=== PATIENT | male | born 1975 | race American Indian/Alaskan Native ===

== ENCOUNTER 2019-07-28 17:37 | Emergency (ER) | payer SELFPAY ==
[2019-07-28 18:18] LABS: Basophils # (Auto) 0.1 K/mm3 (0.0-0.1); Basophils % (Auto) 1.4 % (0.0-1.8); Eosinophils % (Auto) 0.2 % (0.0-4.3); Hematocrit 42.9 % (35.5-45.6); Hemoglobin 14.4 gm/dl (11.8-15.2); Lymphocytes # (Auto) 0.6 K/mm3 (1.2-5.4); Lymphocytes % (Auto) 7.2 % (13.4-35.0); Mean Corpuscular HGB Conc 34 % (32-34); Mean Corpuscular Volume 85 fl (84-94); Monocytes # (Auto) 0.6 K/mm3 (0.0-0.8); Monocytes % (Auto) 7.6 % (0.0-7.3); Platelet Count 146 K/mm3 (140-440); Red Blood Count 5.05 M/mm3 (3.65-5.03); Red Cell Distribution Width 14.9 % (13.2-15.2)
[2019-07-28 18:52] LABS: BUN/Creatinine Ratio 11; Blood Urea Nitrogen 12 mg/dL (9-20); Calcium 8.8 mg/dL (8.4-10.2); Hemolysis Index 54
[2019-07-28] MEDS ORDERED: PHENYTOIN 1,000 MG in SODIUM CHLORIDE 0.9% 250ML 250 ML IV ONE (19:30)
[2019-07-28 21:19] VITALS: BP 120/70
--- NOTE | 2019-07-28 21:25 | Emergency Department Report ---
ED Seizure HPI - General Chief Complaint: Seizure Stated Complaint: SEIZURE/UNRESPONSIVE Time Seen by Provider: 07/28/19 18:00 Source: patient, EMS Mode of arrival: Stretcher Limitations: No Limitations - History of Present Illness Initial Comments: Patient is a 43-year-old -[place] male with past medical history of seizure disorder who states he missed his Dilantin dose last night. Patient states is been some time since he had a seizure. Patient states she's been no injury. He still feels somewhat sleepy and tired. Patient lies any drug use fevers chills cough, congestion nausea vomiting. - Related Data Home Medications Medication Instructions Recorded Confirmed Last Taken Phenytoin [Dilantin] 500 mg PO QHS 07/28/19 07/28/19 07/27/19 Allergies Allergy/AdvReac Type Severity Reaction Status Date / Time aspirin Allergy Unknown Verified 07/28/19 19:28 ED Review of Systems ROS: Stated complaint: SEIZURE/UNRESPONSIVE Other details as noted in HPI Comment: All other systems reviewed and negative ED Past Medical Hx - Past Medical History Hx Seizures: Yes - Surgical History Past Surgical History?: No - Social History Smoking Status: Current Every Day Smoker Substance Use Type: None - Medications Home Medications: Home Medications Medication Instructions Recorded Confirmed Last Taken Type Phenytoin [Dilantin] 500 mg PO QHS 07/28/19 07/28/19 07/27/19 History ED Physical Exam - General Limitations: No Limitations General appearance: alert, in no apparent distress - Head Head exam: Present: atraumatic, normocephalic - Eye Eye exam: Present: normal appearance, PERRL, EOMI - ENT ENT exam: Present: mucous membranes moist - Neck Neck exam: Present: normal inspection - Respiratory Respiratory exam: Present: normal lung sounds bilaterally. Absent: respiratory distress, wheezes, rales, rhonchi - Cardiovascular Cardiovascular Exam: Present: regular rate, normal rhythm, normal heart sounds. Absent: systolic murmur, diastolic murmur, rubs, gallop - GI/Abdominal GI/Abdominal exam: Present: soft, normal bowel sounds. Absent: distended, tenderness, guarding, rebound - Rectal Rectal exam: Present: deferred - Extremities Exam Extremities exam: Present: normal inspection - Back Exam Back exam: Present: normal inspection - Neurological Exam Neurological exam: Present: alert, oriented X3 - Psychiatric Psychiatric exam: Present: normal affect, normal mood - Skin Skin exam: Present: warm, dry, intact, normal color. Absent: rash ED Course Vital Signs 07/28/19 07/28/19 07/28/19 17:55 18:43 19:05 Temperature 98.0 F 98.2 F Pulse Rate 83 82 77 Respiratory 21 12 18 Rate Blood Pressure 116/67 Blood Pressure 115/70 113/68 [Left] O2 Sat by Pulse 98 97 100 Oximetry 07/28/19 21:00 Temperature Pulse Rate 82 Respiratory 19 Rate Blood Pressure 120/70 Blood Pressure [Left] O2 Sat by Pulse 100 Oximetry ED Medical Decision Making - Lab Data Result diagrams: 07/28/19 18:09 07/28/19 18:09 Lab Results 07/28/19 07/28/19 07/28/19 Range/Units 18:09 18:09 18:09 WBC 8.0 (4.5-11.0) K/mm3 RBC 5.05 H (3.65-5.03) M/mm3 Hgb 14.4 (11.8-15.2) gm/dl Hct 42.9 (35.5-45.6) % MCV 85 (84-94) fl MCH 29 (28-32) pg MCHC 34 (32-34) % RDW 14.9 (13.2-15.2) % Plt Count 146 (140-440) K/mm3 Lymph % (Auto) 7.2 L (13.4-35.0) % [place] % (Auto) 7.6 H (0.0-7.3) % Eos % (Auto) 0.2 (0.0-4.3) % Baso % (Auto) 1.4 (0.0-1.8) % Lymph # 0.6 L (1.2-5.4) K/mm3 [place] # 0.6 (0.0-0.8) K/mm3 Eos # 0.0 (0.0-0.4) K/mm3 Baso # 0.1 (0.0-0.1) K/mm3 Seg Neutrophils % 83.6 H (40.0-70.0) % Seg Neutrophils # 6.7 (1.8-7.7) K/mm3 Sodium 134 L (137-145) mmol/L Potassium 3.9 (3.6-5.0) mmol/L Chloride 97.3 L (98-107) mmol/L Carbon Dioxide 20 L (22-30) mmol/L Anion Gap 21 mmol/L BUN 12 (9-20) mg/dL Creatinine 1.1 (0.8-1.5) mg/dL Estimated GFR > 60 ml/min BUN/Creatinine Ratio 11 % Glucose 108 H (75-100) mg/dL Calcium 8.8 (8.4-10.2) mg/dL Phenytoin 3.0 L (10.0-20.0) ug/mL - Medical Decision Making Since Dilantin level was 3. We loaded with a gram of Dilantin and will be discharged home. Patient's been seizure-free since he's been in our emergency department. Critical care attestation.: If time is entered above; I have spent that time in minutes in the direct care of this critically ill patient, excluding procedure time. ED Disposition Clinical Impression: Subtherapeutic phenytoin level, Breakthrough seizure Disposition: DC-01 TO HOME OR SELFCARE Is pt being admited?: No Does the pt Need Aspirin: No Condition: Stable Instructions: Recurrent Seizures Adult (ED) Referrals: GALE OCHOA MD [Staff Physician] - as needed Time of Disposition: 21:25
== END 2019-07-28 22:14 | disposition home or self-care (01) ==
LOC: ED 17:37
DX: R56.9 Unspecified convulsions (principal); Z88.6 Allergy status to analgesic agent
CPT/HCPCS: 36415; 80048; 80185; 85025; 96365; 99284; J1165; J7050

== ENCOUNTER 2019-09-16 09:08 | Emergency (ER) | payer OTHER ==
[2019-09-16] MEDS ORDERED: KETOROLAC 30 MG/1 ML INJ IV ONE (09:32)
[2019-09-16] MEDS ORDERED: MORPHINE 4 MG/1 ML INJ IV ONE ×2 (09:32→12:30)
--- NOTE | 2019-09-16 10:12 | XRay Report ---
XR shoulder 2+V RT INDICATION / CLINICAL INFORMATION: right shoulder deformity after SZ. COMPARISON: None available. FINDINGS: BONES/JOINT(S): There is an anterior right shoulder (glenohumeral joint) dislocation. There is no jose reciable fracture radiographically. SOFT TISSUES: No significant abnormality. ADDITIONAL FINDINGS: None. Signer Name: Phu Aldridge MD Signed: 09/16/2019 10:08 AM Workstation Name: [id number]
[2019-09-16] MEDS ORDERED: ETOMIDATE 20 MG/10 ML INJ IV ONE (10:36)
--- NOTE | 2019-09-16 10:47 | Emergency Department Report ---
ED Seizure HPI - General Chief Complaint: Seizure Stated Complaint: SHOULDER PAIN/SEIZURE Time Seen by Provider: 09/16/19 09:28 Source: patient Mode of arrival: Ambulatory Limitations: No Limitations - History of Present Illness Initial Comments: The patient is a 44-year-old male with a past smoker history of seizures who had a seizure last night. Patient takes Dilantin for his seizure medications. Patient states he believes he's been compliant with his medications. Patient states that during the seizure he injured his right shou lder. Patient has a history of shoulder dislocation in the past. Patient states he has 8 out of 10 pain in the right shoulder which is worse with movement better with rest. Patient denies any other injury at this time. She denies any fevers chills nausea vomiting cough cold or congestion. MD Complaint: seizure Witnessed:: Yes Place: home (patient had a seizure in his bed) Associated Symptoms: shoulder dislocation - Related Data Previous Rx's Medication Instructions Recorded Last Taken Type HYDROcodone/APAP 5-325 [Bear 1 each PO Q6HR PRN #14 tablet 09/16/19 Unknown Rx 5/325] Phenytoin [Dilantin] 500 mg PO QHS #30 09/16/19 Unknown Rx Allergies Allergy/AdvReac Type Severity Reaction Status Date / Time aspirin Allergy Unknown Verified 09/16/19 09:23 ED Review of Systems ROS: Stated complaint: SHOULDER PAIN/SEIZURE Other details as noted in HPI Comment: All other systems reviewed and negative ED Past Medical Hx - Past Medical History Previous Medical History?: Yes Hx Seizures: Yes - Surgical History Past Surgical History?: No - Social History Smoking Status: Current Every Day Smoker Substance Use Type: None - Medications Home Medications: Home Medications Medication Instructions Recorded Confirmed Last Taken Type HYDROcodone/APAP 5-325 [Bear 1 each PO Q6HR PRN #14 tablet 09/16/19 Unknown Rx 5/325] Phenytoin [Dilantin] 500 mg PO QHS #30 09/16/19 Unknown Rx ED Physical Exam - General Limitations: No Limitations General appearance: alert, in no apparent distress - Head Head exam: Present: atraumatic, normocephalic - Eye Eye exam: Present: normal appearance, PERRL, EOMI - ENT ENT exam: Present: mucous membranes moist - Neck Neck exam: Present: normal inspection. Absent: tenderness, meningismus - Respiratory Respiratory exam: Present: normal lung sounds bilaterally. Absent: respiratory distress, wheezes, rales, rhonchi - Cardiovascular Cardiovascular Exam: Present: regular rate, normal rhythm, normal heart sounds - GI/Abdominal GI/Abdominal exam: Present: soft, normal bowel sounds. Absent: distended, tenderness, guarding, rebound - Rectal Rectal exam: Present: deferred - Extremities Exam Extremities exam: Present: normal inspection - Expanded Upper Extremity Exam Right Shoulder Exam: Present: tenderness, deformity, dislocation. Absent: full ROM Vascular: Present: normal capillary refill. Absent: vascular compromise - Back Exam Back exam: Present: normal inspection - Neurological Exam Neurological exam: Present: alert, oriented X3 - Psychiatric Psychiatric exam: Present: normal affect, normal mood - Skin Skin exam: Present: warm, dry, intact, normal color. Absent: rash ED Course Vital Signs 09/16/19 09/16/19 09/16/19 09:32 11:17 11:54 Temperature 98.2 F 98 F Temperature [ Post-Procedure] Temperature [ 98 F Pre-Procedure] Pulse Rate 70 64 Pulse Rate [ Post-Procedure] Pulse Rate [Pre 64 -Procedure] Respiratory 18 14 Rate Respiratory Rate [Post- Procedure] Respiratory 16 Rate [Pre- Procedure] Blood Pressure 150/88 131/79 [Left] Blood Pressure [Post-Procedure ] Blood Pressure 126/79 [Pre-Procedure] O2 Sat by Pulse 97 100 Oximetry O2 Sat by Pulse Oximetry [Post -Procedure] O2 Sat by Pulse 100 Oximetry [Pre- Procedure] 09/16/19 09/16/19 09/16/19 11:56 12:11 12:19 Temperature Temperature [ 98 F 98 F Post-Procedure] Temperature [ Pre-Procedure] Pulse Rate Pulse Rate [ 64 60 Post-Procedure] Pulse Rate [Pre -Procedure] Respiratory Rate Respiratory 16 16 Rate [Post- Procedure] Respiratory Rate [Pre- Procedure] Blood Pressure [Left] Blood Pressure 136/78 138/81 [Post-Procedure ] Blood Pressure [Pre-Procedure] O2 Sat by Pulse 100 Oximetry O2 Sat by Pulse 100 100 Oximetry [Post -Procedure] O2 Sat by Pulse Oximetry [Pre- Procedure] - Reevaluation(s) Reevaluation #1: 09/16/19 10:50 Attempted to use the Milch technique for the patient's shoulder dislocation. Was unsuccessful. The plan was to use moderate sedation and reattempt the relocation. - Moderate Sedation Indications: fracture/dislocation redu ASA Class: II Mallampati Airway Score: 2 Time of Last PO Intake: 06:00 Preparation: compliance monitor applied, pulse oximeter, capnometry used, supplemental O2 applied, suction/airway equipment at bedside, IV secured IV Etomidate Dose (mgs): 10 Complications: none Patient Tolerated Procedure: well - Orthopedic Joint Reduction Joint #1 Consent Obtained: verbal consent, written consent Time Out Performed: Yes Side: right Joint Reduction Location: shoulder Analgesia: moderate sedation Shoulder Technique Used (if applicable): Milch Post-Reduction Neuro Exam: intact Post-Reduction Vascular Exam: intact Post Reduction X-Ray Obtained: Yes Splint Applied: Yes Patient Tolerated Procedure: well ED Medical Decision Making - Lab Data Lab Results 09/16/19 Range/Units 09:45 Phenytoin 0.9 L (10.0-20.0) ug/mL - Radiology Data Patient: LULU DOWNS MR#: [id number] : 1975 Acct:[id number] Age/Sex: 44 / M ADM Date: 09/16/19 Loc: ED Attending Dr: Ordering Physician: OK KELLEY MD Date of Service: 09/16/19 Procedure(s): XR shoulder 2+V RT Accession Number(s): [id number] cc: OK KELLEY MD Fluoro Time In Minutes: XR shoulder 2+V RT INDICATION / CLINICAL INFORMATION: right shoulder deformity after SZ. COMPARISON: None available. FINDINGS: BONES/JOINT(S): There is an anterior right shoulder (glenohumeral joint) dislocation. There is no appreciable fracture radiographically. SOFT TISSUES: No significant abnormality. ADDITIONAL FINDINGS: None. Signer Name: Phu Aldridge MD Signed: 09/16/2019 10:08 AM Workstation Name: [id number] - Medical Decision Making Patient is a 44-year-old gentleman who suffered a seizure prior to arrival. Patient states is mostly compliant with his Dilantin however he did miss a few doses a few days ago. Patient Dilantin level was very low and the patient's been loaded at this time. Patient also suffered a right shoulder dislocation. Patient had shoulder reduced. Moderate sedation had to be used. Patient was monitored until he returned back to his baseline patient is doing well. Critical care attestation.: If time is entered above; I have spent that time in minutes in the direct care of this critically ill patient, excluding procedure time. ED Disposition Clinical Impression: Seizure, Subtherapeutic phenytoin level, Shoulder dislocation Disposition: - TO HOME OR SELFCARE Is pt being admited?: No Does the pt Need Aspirin: No Condition: Stable Instructions: Shoulder Dislocation (ED), Epilepsy (ED) Prescriptions: Phenytoin [Dilantin] 500 mg PO QHS #30 HYDROcodone/APAP 5-325 [Bear 5/325] 1 each PO Q6HR PRN #14 tablet PRN Reason: Pain Referrals: PRIMARY CAREMD [Primary Care Provider] - 3-5 Days PANFILO GREENE MD [Staff Physician] - 3-5 Days Time of Disposition: 13:33
[2019-09-16] MEDS ORDERED: PHENYTOIN 1,000 MG in SODIUM CHLORIDE 0.9% 250ML 250 ML IV ONE (12:00)
--- NOTE | 2019-09-16 12:33 | XRay Report ---
Right shoulder-single frontal view INDICATION: post reduction film. COMPARISON: Earlier today IMPRESSION: Interval relocation of the glenohumeral joint with no gross fracture identified. No sig nificant DJD. Signer Name: Austin Magana MD Signed: 09/16/2019 12:28 PM Workstation Name: [id number]
[2019-09-16 14:04] VITALS: BP 137/86
== END 2019-09-16 14:02 | disposition home or self-care (01) ==
LOC: ED 09:08
DX: S43.004A Unspecified dislocation of right shoulder joint, initial encounter (principal); R89.2 Abnormal level of other drugs, medicaments and biological substances in specimens from other organs, systems and tissues; R56.9 Unspecified convulsions; F17.200 Nicotine dependence, unspecified, uncomplicated; Z88.6 Allergy status to analgesic agent; Z79.899 Other long term (current) drug therapy; W01.198A Fall on same level from slipping, tripping and stumbling with subsequent striking against other object, initial encounter; Y93.89 Activity, other specified; Y92.89 Other specified places as the place of occurrence of the external cause; Y99.8 Other external cause status
CPT/HCPCS: 23650; 36415; 73020; 73030; 80185; 94760; 96365; 96375; 96376; 99285; J1165; J1885; J2270; J7050

== ENCOUNTER 2019-10-11 15:46 | Emergency (ER) | payer SELFPAY ==
--- NOTE | 2019-10-11 16:16 | Event Note ---
ED Screening Note Date of service: 10/11/19 Time: 16:12 ED Screening Note: This is a 44 y.o. M. that presents to the ER s/p seizure today at 1100 and 1500. PMH of seizure Reports right shoulder pain. This initial assessment/diagnostic orders/clinical plan/treatment(s) is/are subject to change based on patients health status, clinical progression and re- assessment by fellow clinical providers in the ED. Further treatment and workup at subsequent clinical providers discretion. Patient/guardian urged not to elope from the ED as their condition may be serious if not clinically assessed and managed. Initial orders include: XR right shoulder Labs
[2019-10-11 16:37] LABS: Hematocrit 46.3 % (35.5-45.6); Hemoglobin 15.4 gm/dl (11.8-15.2); Mean Corpuscular HGB Conc 33 % (32-34); Mean Corpuscular Volume 85 fl (84-94); Platelet Count 165 K/mm3 (140-440); Red Blood Count 5.43 M/mm3 (3.65-5.03); Red Cell Distribution Width 13.9 % (13.2-15.2)
[2019-10-11] MEDS ORDERED: SODIUM CHLORIDE 0.9% 1000 ML 1,000 ML IV ONE (16:40)
[2019-10-11] MEDS ORDERED: ETOMIDATE 20 MG/10 ML INJ IV ONE (16:40)
[2019-10-11] MEDS ORDERED: PROPOFOL 200 MG/20 ML VIAL IV ONE (16:40)
--- NOTE | 2019-10-11 16:42 | Emergency Department Report ---
ED Seizure HPI - General Chief Complaint: Seizure Stated Complaint: SEIZURE 2X TIMES Time Seen by Provider: 10/11/19 16:12 Source: patient, family, EMS Mode of arrival: Stretcher Limitations: No Limitations - History of Present Illness Initial Comments: Patient is a 44-year-old male up since emergency room with complaints of seizure activity. Patient states she has a history of seizure and is compliant with his medications. Patient states he normally has approximately 1-2 seizures per month. Patient states during the seizure he dislocated his right shoulder. Patient states he's had this in the past. Patient states he dislocated his shoulder September 16 of this year. Patient states the pain is 10 out of 10. Patient states the pain is better with rest and worse with palpation and movement of the limb. Patient states the pain is nonradiating. Patient denies fever and chills. Patient denies chest pain. Patient shortness of breath. Pa joan denies head injury. Patient denies dizziness. Patient denies any other physical complaints. MD Complaint: seizure -: Sudden Description of Episode: loss of consciousness, tonic-clonic movement, other -: second(s) Witnessed:: Yes Trauma: Yes Place: home Possible Precipitating Event: none Associated Symptoms: shoulder dislocation. denies: chest pain, confusion, coug h, diaphoresis, fever/chills, loss of appetite, malaise, rash, shortness of breath, syncope, weakness, tongue injury Treatments Prior to Arrival: none - Related Data Previous Rx's Medication Instructions Recorded Last Taken Type HYDROcodone/APAP 5-325 [Jenkins 1 each PO Q6HR PRN #14 tablet 09/16/19 Unknown Rx 5/325] Phenytoin [Dilantin] 500 mg PO QHS #30 09/16/19 Unknown Rx Naproxen [Naprosyn] 500 mg PO BID PRN #14 tablet 10/11/19 Unknown Rx Allergies Allergy/AdvReac Type Severity Reaction Status Date / Time aspirin Allergy Unknown Verified 09/16/19 09:23 ED Review of Systems ROS: Stated complaint: SEIZURE 2X TIMES Other details as noted in HPI Constitutional: denies: chills, fever Eyes: denies: eye pain, eye discharge, vision change ENT: denies: ear pain, throat pain Respiratory: denies: cough, shortness of breath, wheezing Cardiovascular: denies: chest pain, palpitations Endocrine: no symptoms reported Gastrointestinal: denies: abdominal pain, nausea, diarrhea Genitourinary: denies: urgency, dysuria Musculoskeletal: denies: back pain, joint swelling, arthralgia Skin: denies: rash, lesions Neurological: denies: headache, weakness, paresthesias Psychiatric: denies: anxiety, depression Hematological/Lymphatic: denies: easy bleeding, easy bruising ED Past Medical Hx - Past Medical History Previous Medical History?: Yes Hx Seizures: Yes Additional medical history: Dislocated shoulder with reduction - Surgical History Past Surgical History?: No - Family History Family history: no significant - Social History Smoking Status: Current Every Day Smoker Substance Use Type: Alcohol - Medications Home Medications: Home Medications Medication Instructions Recorded Confirmed Last Taken Type HYDROcodone/APAP 5-325 [Jenkins 1 each PO Q6HR PRN #14 tablet 09/16/19 Unknown Rx 5/325] Phenytoin [Dilantin] 500 mg PO QHS #30 09/16/19 Unknown Rx Naproxen [Naprosyn] 500 mg PO BID PRN #14 tablet 10/11/19 Unknown Rx ED Physical Exam - General Limitations: No Limitations General appearance: alert, in no apparent distress - Head Head exam: Present: atraumatic, normocephalic - Eye Eye exam: Present: normal appearance - ENT ENT exam: Present: mucous membranes moist - Neck Neck exam: Present: normal inspection - Respiratory Respiratory exam: Present: normal lung sounds bilaterally. Absent: respiratory distress - Cardiovascular Cardiovascular Exam: Present: regular rate, normal rhythm. Absent: systolic murmur, diastolic murmur, rubs, gallop - GI/Abdominal GI/Abdominal exam: Present: soft, normal bowel sounds - Rectal Rectal exam: Present: deferred - Extremities Exam Extremities exam: Present: full ROM (except for with right shoulder), tenderness (right shoulder), other - Back Exam Back exam: Present: normal inspection - Neurological Exam Neurological exam: Present: alert, oriented X3 - Psychiatric Psychiatric exam: Present: normal affect, normal mood - Skin Skin exam: Present: warm, dry, intact, normal color. Absent: rash ED Course Vital Signs 10/11/19 10/11/19 10/11/19 16:12 16:30 18:06 Temperature 98.5 F 98.4 F 98.6 F Pulse Rate 97 H 93 H 92 H Respiratory 16 18 16 Rate Blood Pressure 130/84 121/75 [Left] O2 Sat by Pulse 98 100 98 Oximetry 10/11/19 10/11/19 18:12 23:50 Temperature 98.6 F Pulse Rate 85 88 Respiratory 18 16 Rate Blood Pressure 135/77 132/56 [Left] O2 Sat by Pulse 98 98 Oximetry - Reevaluation(s) Reevaluation #1: Respiratory consult for capnography. 10/11/19 16:57 Reevaluation #2: Patient had conscious sedation for a right shoulder reduction. See procedure note. Patient tolerated well. 10/11/19 17:55 Reevaluation #3: Patient resting in bed. Vital signs stable. No hypoxia noted 10/11/19 18:08 Reevaluation #4: Patient more awake. Patient easily arousable. Patient alert and oriented 4. 10/11/19 19:26 Patient resting in bed. Patient easily arousable. 10/11/19 20:22 Reevaluation #5: Patient awake alert and oriented 4. Patient tolerated by mouth intake. Patient ambulatory in the ER. Patient is stable for discharge. Patient agrees with plan of care. Patient will be discharged home. Patient given discharge instructions. Patient voiced understanding of discharge instructions. 10/11/19 23:26 - Moderate Sedation Indications: fracture/dislocation redu Presedation Evaluation: Timeout done with nurse at bedside. Respiratory at bedside. Patient signed consent ASA Class: I Mallampati Airway Score: 1 Time of Last PO Intake: 08:00 Preparation: cardiac exercise specialist applied, pulse oximeter, capnometry used, valdez pplemental O2 applied, suction/airway equipment at bedside, IV secured IV Propofol Dose (mgs): 100 IV Etomidate Dose (mgs): 10 Complications: none Patient Tolerated Procedure: well, no complications - Orthopedic Joint Reduction Joint #1 Consent Obtained: verbal consent, written consent Time Out Performed: Yes Side: right Joint Reduction Location: shoulder Analgesia: moderate sedation Shoulder Technique Used (if applicable): external rotation Post-Reduction Neuro Exam: intact Post-Reduction Vascular Exam: intact Post Reduction X-Ray Obtained: Yes Post Reduction X-Ray Results: reduced Splint Applied: Yes Patient Tolerated Procedure: well, no complications ED Medical Decision Making - Lab Data Result diagrams: 10/11/19 16:21 10/11/19 16:21 - Radiology Data Radiology results: report reviewed, image reviewed interpreted by me: First x-ray shows dislocation. Second x-ray shows adequate reduction. RIGHT SHOULDER 1 VIEW(S) 6:11 PM INDICATION / CLINICAL INFORMATION: post reduction COMPARISON: 4:40 PM FINDINGS: BONES / JOINT(S): Successful reduction of previous right shoulder dislocation. Glenohumeral relationship has been restored. Hill-Sachs deformity of the posterior lateral humeral head. No acute fracture noted. SOFT TISSUES: Mild soft tissue swelling around the right shoulder. ADDITIONAL FINDINGS: None. RIGHT SHOULDER 3 VIEW(S) 4:40 PM INDICATION / CLINICAL INFORMATION: fall injury, pain and deformity, r/o fx COMPARISON: 09/16/19 FINDINGS: BONES / JOINT(S): Recurrent anterior shoulder dislocation. No definite acute fracture identified. Scapular Y view demonstrates small Hill-Sachs deformity of the posterior lateral humeral head. No significant arthritis. SOFT TISSUES: No significant abnormality. ADDITIONAL FINDINGS: None. IMPRESSION: 1. Anterior shoulder dislocation. - Medical Decision Making Patient is a 44-year-old [facility] emergency room with seizure and secondary shoulder dislocation. Patient advises severe shoulder pain. Patient had an x- ray done which shows an anterior dislocation. Patient given moderate sedation and had his shoulder reduced without difficulties. Patient consents procedure prior to procedure being done. Patient had labs done are unremarkable. Patient given Keppra for his seizures. Patient has seizure medications at home. Patient's post reduction x-ray shows adequate reduction. Patient stable for discharge. Patient discharged home. Patient given Naprosyn for pain. - Differential Diagnosis SZ, shoulder dislocation due to seizure activity. Critical Care Time: Yes Critical care time in (mins) excluding proc time.: 45 Critical care attestation.: If time is entered above; I have spent that time in minutes in the direct care of this critically ill patient, excluding procedure time. Critical Care Time: 45 minutes ED Disposition Clinical Impression: Seizure Shoulder dislocation Qualifiers: Encounter type: initial encounter Laterality: right Qualified Code(s): S43.004A - Unspecified dislocation of right shoulder joint, initial encounter Disposition: TO HOME OR SELFCARE Is pt being admited?: No Does the pt Need Aspirin: No Condition: Stable Instructions: Shoulder Dislocation (ED), Moderate Sedation (ED) Additional Instructions: Patient to follow up with primary care in 2-3 days. Patient to follow-up with orthopedist in 2-3 days. Patient to return to your condition worsens. Patient to take all medications. Patient to rest. Patient to take Tylenol or ibuprofen when necessary for pain. Patient to avoid strenuous exercise until cleared by orthopedist. Patient to keep right arm in sling until cleared by orthopedist. Patient to avoid driving. Patient to follow-up with neurology in 2-3 days. Prescriptions: Naproxen [Naprosyn] 500 mg PO BID PRN #14 tablet PRN Reason: Pain , Severe (7-10) Referrals: ADEEL MUNSON MD [Staff Physician] - 2-3 Days PRIMARY CAREMD [Primary Care Provider] - 2-3 Days PANFILO GREENE MD [Staff Physician] - 2-3 Days FLASH KIDD MD [Staff Physician] - 2-3 Days Forms: Work/School Release Form(ED) Time of Disposition: 23:28
[2019-10-11 16:57] LABS: BUN/Creatinine Ratio 16; Blood Urea Nitrogen 14 mg/dL (9-20); Calcium 9.2 mg/dL (8.4-10.2); Hemolysis Index 21
--- NOTE | 2019-10-11 17:13 | XRay Report ---
RIGHT SHOULDER 3 VIEW(S) 4:40 PM INDICATION / CLINICAL INFORMATION: fall injury, pain and deformity, r/o fx COMPARISON: 09/16/19 FINDINGS: BONES / JOINT(S): Recurrent anterior shoulder dislocation. No definite acute fracture identified. Sca pular Y view demonstrates small Hill-Sachs deformity of the posterior lateral humeral head. No signif icant arthritis. SOFT TISSUES: No significant abnormality. ADDITIONAL FINDINGS: None. IMPRESSION: 1. Anterior shoulder dislocation. Signer Name: Kathy Quintero MD Signed: 10/11/2019 5:08 PM Workstation Name: [id number]
[2019-10-11] MEDS ORDERED: levETIRAcetam 1000 MG/NS 0.75% 1,000 MG/100 ML BAG IV ONE (18:07)
--- NOTE | 2019-10-11 19:11 | XRay Report ---
RIGHT SHOULDER 1 VIEW(S) 6:11 PM INDICATION / CLINICAL INFORMATION: post reduction COMPARISON: 4:40 PM FINDINGS: BONES / JOINT(S): Successful reduction of previous right shoulder dislocation. Glenohumeral relations hip has been restored. Hill-Sachs deformity of the posterior lateral humeral head. No acute fracture noted. SOFT TISSUES: Mild soft tissue swelling around the right shoulder. ADDITIONAL FINDINGS: None. Signer Name: Kathy Quintero MD Signed: 10/11/2019 7:07 PM Workstation Name: [email or web address]
[2019-10-11] MEDS ORDERED: KETOROLAC 30 MG/1 ML INJ IV ONE (19:25)
[2019-10-11 23:51] VITALS: BP 132/56
== END 2019-10-11 23:50 | disposition home or self-care (01) ==
LOC: ED 15:46
DX: S43.004A Unspecified dislocation of right shoulder joint, initial encounter (principal); R56.9 Unspecified convulsions; F17.200 Nicotine dependence, unspecified, uncomplicated; F10.10 Alcohol abuse, uncomplicated; Z79.899 Other long term (current) drug therapy; Z88.6 Allergy status to analgesic agent; X58.XXXA Exposure to other specified factors, initial encounter; Y93.89 Activity, other specified; Y92.89 Other specified places as the place of occurrence of the external cause; Y99.8 Other external cause status
CPT/HCPCS: 23650; 36415; 73020; 73030; 80048; 82962; 85027; 96374; 96375; 99285; J1885; J1953; J2704; J7030

== ENCOUNTER 2019-11-30 02:58 | Emergency (ER) | payer OTHER ==
[2019-11-30 03:10] VITALS: BP 120/83
[2019-11-30 03:45] LABS: Basophils # (Auto) 0.1 K/mm3 (0.0-0.1); Basophils % (Auto) 1.2 % (0.0-1.8); Eosinophils # (Auto) 0.3 K/mm3 (0.0-0.4); Eosinophils % (Auto) 4.2 % (0.0-4.3); Hematocrit 45.2 % (35.5-45.6); Hemoglobin 15.7 gm/dl (11.8-15.2); Lymphocytes # (Auto) 2.3 K/mm3 (1.2-5.4); Lymphocytes % (Auto) 29.2 % (13.4-35.0); Mean Corpuscular HGB Conc 35 % (32-34); Mean Corpuscular Volume 84 fl (84-94); Monocytes # (Auto) 0.7 K/mm3 (0.0-0.8); Platelet Count 178 K/mm3 (140-440); Red Blood Count 5.39 M/mm3 (3.65-5.03); Red Cell Distribution Width 14.4 % (13.2-15.2)
--- NOTE | 2019-11-30 03:45 | Emergency Department Report ---
HPI - General Chief Complaint: Seizure Time Seen by Provider: 11/30/19 03:34 - HPI HPI: 44-year-old male presents to the emergency department with complaint of having 3 seizures today prior to presentation. The last seizure was at about 6 PM this evening. The patient does have a seizure history for which she takes 500 mg of Dilantin at night and says he has been compliant. He denies any tobacco, alcohol or illicit drug use/abuse. He says that he moved here from [place] about 3 months ago and therefore does not have any local primary care physician or neurologist. Currently the patient is awake, alert without any significant complaints. The patient has been seen here previously for seizures. ED Past Medical Hx - Past Medical History Previous Medical History?: Yes Hx Seizures: Yes Additional medical history: Dislocated shoulder with reduction - Surgical History Past Surgical History?: No - Social History Smoking Status: Current Every Day Smoker Substance Use Type: None - Medications Home Medications: Home Medications Medication Instructions Recorded Confirmed Last Taken Type HYDROcodone/APAP 5-325 [[place] 1 each PO Q6HR PRN #14 tablet 09/16/19 Unknown Rx 5/325] Phenytoin [Dilantin] 500 mg PO QHS #30 09/16/19 Unknown Rx Naproxen [Naprosyn] 500 mg PO BID PRN #14 tablet 10/11/19 Unknown Rx ED Review of Systems ROS: Stated complaint: SEIZURE Other details as noted in HPI Comment: All other systems reviewed and negative Constitutional: denies: chills, fever Eyes: denies: eye pain, vision change ENT: denies: ear pain, throat pain Respiratory: denies: cough, shortness of breath Cardiovascular: denies: chest pain, palpitations Gastrointestinal: denies: abdominal pain, vomiting Genitourinary: denies: dysuria, discharge Musculoskeletal: denies: back pain, arthralgia Skin: denies: rash, lesions Neurological: other (seizure). denies: confusion Physical Exam - Physical Exam Vital Signs: Vital Signs 11/30/19 03:01 Temperature 99.2 F Pulse Rate 84 Respiratory 18 Rate Blood Pressure 120/83 O2 Sat by Pulse 99 Oximetry Physical Exam: GENERAL: The patient is well-developed well-nourished. HEENT: Normocephalic. Atraumatic. Patient has moist mucous membranes. EYES: Extraocular motions are intact. Pupils equal and reactive to light bilaterally. NECK: Supple. Trachea is midline. CHEST/LUNGS: Clear to auscultation. There is no respiratory distress noted. HEART/CARDIOVASCULAR: Regular. There is no tachycardia. ABDOMEN: Abdomen is soft, nontender. Patient has normal bowel sounds. There is no abdominal distention. SKIN:Skin is warm and dry. . NEURO: The patient is awake, alert, and oriented. The patient is cooperative. The patient has no focal neurologic deficits. Normal speech. Cranial nerves II through XII grossly intact. MUSCULOSKELETAL: There is no tenderness or deformity. There is no limitation range of motion. There is no evidence of acute injury. ED Course Vital Signs 11/30/19 03:01 Temperature 99.2 F Pulse Rate 84 Respiratory 18 Rate Blood Pressure 120/83 O2 Sat by Pulse 99 Oximetry ED Medical Decision Making - Lab Data Result diagrams: 11/30/19 03:25 11/30/19 03:25 - Medical Decision Making This patient presents after having 3 seizures earlier the day. The last seizure was at about 6 PM, 10 hours ago. Since being in the emergency department he has been awake, alert, oriented. There are no focal, motor or sensory deficits and cranial nerves appear intact. Labs are unremarkable including CBC and metabolic panel and his phenytoin level is within the limits for being therapeutic. Vital signs stable throughout his ED course. He will be discharged home and has been given referrals for both neurology and primary care. He has been instructed to return to the emergency department immediately with any further seizure-like activity, worsening of his symptoms, or with any acute distress. - Differential Diagnosis epilepsy, hypoglycemia, subtherapeutic Dilantin Critical Care Time: No Critical care attestation.: If time is entered above; I have spent that time in minutes in the direct care of this critically ill patient, excluding procedure time. ED Disposition Clinical Impression: Seizures Disposition: DC-01 TO HOME OR SELFCARE Is pt being admited?: No Condition: Stable Instructions: Recurrent Seizures Adult (ED) Additional Instructions: Please continue taking your seizure medications as prescribed. Return to the emergency Department with any further seizure-like activity, worsening of your symptoms, or with any acute distress. I have given you a referral for 2 different local neurologists, Dr. Shepherd and Umer. I have also given you a referral for some local primary care physicians and clinics. Referrals: PRIMARY CARE, [Primary Care Provider] - 3-5 Days MARCIA HEATH MD [Staff Physician] - 3-5 Days ADEEL MUNSON MD [Staff Physician] - 3-5 Days ALEJANDRA SHEPHERD MD [Referring] - 3-5 Days [facility] [Outside] - 3-5 Days Forms: Work/School Release Form(ED) Time of Disposition: 04:24
[2019-11-30 04:02] LABS: Alanine Aminotransferase 23 units/L (7-56); Albumin 4.5 g/dL (3.9-5); BUN/Creatinine Ratio 13; Blood Urea Nitrogen 14 mg/dL (9-20); Calcium 9.5 mg/dL (8.4-10.2); Hemolysis Index 7
== END 2019-11-30 04:33 | disposition home or self-care (01) ==
LOC: ED 02:58
DX: R56.9 Unspecified convulsions (principal); F17.200 Nicotine dependence, unspecified, uncomplicated; Z79.899 Other long term (current) drug therapy; Z88.8 Allergy status to other drugs, medicaments and biological substances
CPT/HCPCS: 36415; 80053; 80185; 85025

== ENCOUNTER 2020-03-18 18:19 | Emergency (ER) | payer OTHER ==
[2020-03-18 18:28] VITALS: BP 140/87
[2020-03-18] MEDS ORDERED: HYDROcodone/ACETAMINOPHEN 10-325MG TAB PO ONE (19:25)
--- NOTE | 2020-03-18 19:28 | Emergency Department Report ---
ED Upper Extremity Inj HPI - General Chief Complaint: Extremity Injury, Upper Stated Complaint: RIGHT SHOULDER PAIN Time Seen by Provider: 03/18/20 19:22 Source: patient Mode of arrival: Ambulatory Limitations: No Limitations - History of Present Illness Initial Comments: This is a 44-year-old male nontoxic, well nourished in appearance, no acute signs of distress presents to the ED with c/o of right shoulder pain. Patient stated that he believes he dislocated his shoulder this morning and placed it back. Patient denies any trauma. Patient denies any numbness, tingling, fever, chills, nausea, vomiting, chest pain, shortness of breath, headache, stiff neck. Patient denies any joint swelling or joint redness. Patient stated has some decreased range of motion due to pain. Patient stated allergies to aspirin. MD Complaint: Injury to:: right, shoulder -: This morning Other Extremity Injury: Shoulder: Right Other Injuries: none Place: home Severity scale (0 -10): 8 Improves With: immobilization Worsens With: movement of extremity Associated Symptoms: denies other symptoms. denies: weakness, numbness, neck pain, suspects foreign body, nausea/vomiting, heard/felt popping sensat - Related Data Previous Rx's Medication Instructions Recorded Last Taken Type HYDROcodone/APAP 5-325 [[place] 1 each PO Q6HR PRN #14 tablet 09/16/19 Unknown Rx 5/325] Phenytoin [Dilantin] 500 mg PO QHS #30 09/16/19 Unknown Rx Naproxen [Naprosyn] 500 mg PO BID PRN #14 tablet 10/11/19 Unknown Rx Acetaminophen/Codeine [Tylenol 1 tab PO Q6H PRN #12 tab 03/18/20 Unknown Rx /Codeine # 3 tab] Allergies Allergy/AdvReac Type Severity Reaction Status Date / Time aspirin Allergy Hives Verified 11/30/19 03:00 ED Review of Systems ROS: Stated complaint: RIGHT SHOULDER PAIN Other details as noted in HPI Constitutional: denies: chills, fever Eyes: denies: eye pain, eye discharge, vision change ENT: denies: ear pain, throat pain Respiratory: denies: cough, shortness of breath, wheezing Cardiovascular: denies: chest pain, palpitations Endocrine: no symptoms reported Gastrointestinal: denies: abdominal pain, nausea, diarrhea Genitourinary: denies: urgency, dysuria Musculoskeletal: denies: back pain, joint swelling, arthralgia Skin: denies: rash, lesions Neurological: denies: headache, weakness, paresthesias Psychiatric: denies: anxiety, depression Hematological/Lymphatic: denies: easy bleeding, easy bruising ED Past Medical Hx - Past Medical History Previous Medical History?: Yes Hx Seizures: Yes Additional medical history: Dislocated shoulder with reduction - Surgical History Past Surgical History?: No - Social History Smoking Status: Current Every Day Smoker Substance Use Type: None - Medications Home Medications: Home Medications Medication Instructions Recorded Confirmed Last Taken Type HYDROcodone/APAP 5-325 [[place] 1 each PO Q6HR PRN #14 tablet 09/16/19 Unknown Rx 5/325] Phenytoin [Dilantin] 500 mg PO QHS #30 09/16/19 Unknown Rx Naproxen [Naprosyn] 500 mg PO BID PRN #14 tablet 10/11/19 Unknown Rx Acetaminophen/Codeine [Tylenol 1 tab PO Q6H PRN #12 tab 03/18/20 Unknown Rx /Codeine # 3 tab] ED Physical Exam - General Limitations: No Limitations General appearance: alert, in no apparent distress - Head Head exam: Present: atraumatic, normocephalic - Neck Neck exam: Present: normal inspection, full ROM - Extremities Exam Extremities exam: Present: normal inspection, full ROM, tenderness, normal capillary refill. Absent: joint swelling - Expanded Upper Extremity Exam Right General: Present: normal inspection Shoulder Exam: Present: normal inspection, full ROM, tenderness. Absent: swelling, abrasion, laceration, ecchymosis, deformity, crepidus, dislocation, erythema, tenderness over AC joint Upper Arm exam: Present: normal inspection, full ROM. Absent: tenderness, swelling Elbow exam: Present: normal inspection, full ROM. Absent: tenderness, swelling Forearm Wrist exam: Present: normal inspection, full ROM. Absent: tenderness, swelling Hand Wrist exam: Present: normal inspection, full ROM. Absent: tenderness, swelling Vascular: Present: vascular compromise, normal capillary refill - Back Exam Back exam: Present: normal inspection, full ROM - Neurological Exam Neurological exam: Present: alert, oriented X3, normal gait - Psychiatric Psychiatric exam: Present: normal affect, normal mood - Skin Skin exam: Present: warm, dry, intact, normal color. Absent: rash ED Course Vital Signs 03/18/20 03/18/20 18:26 19:36 Temperature 98.7 F Pulse Rate 86 Respiratory 20 16 Rate Blood Pressure 140/87 O2 Sat by Pulse 98 Oximetry - Reevaluation(s) Reevaluation #1: 03/18/20 19:28 Patient is speaking in full sentences with no signs of distress noted. ED Medical Decision Making - Medical Decision Making This is a 44-year-old male that presents with right shoulder strain. Patient is stable and was examined by me. I referred patient to an orthopedic doctor for further evaluation for possible MRI. X-ray has been obtained and dictated by the radiologist. Patient is notified of the x-ray report with noted by the patient. Patient does have normal gait with no tenderness and no joint swelling. No ecchymosis. no joint redness or swelling. Not warm to touch. No signs of cellulites present. Patient received a sling. Patient was instructed to RICE therapy. Patient received [place] for pain and stated that family member will drive the patient home after discharge due to possible drowsiness. Patient is discharged with Tylneol #3. At time of discharge, the patient does not seem toxic or ill in appearance. No acute signs of distress noted. Patient agrees to discharge treatment plan of care. No further questions noted by the patient. Critical care attestation.: If time is entered above; I have spent that time in minutes in the direct care of this critically ill patient, excluding procedure time. ED Disposition Clinical Impression: Right shoulder strain Qualifiers: Encounter type: initial encounter Qualified Code(s): S46.911A - Strain of unspecified muscle, fascia and tendon at shoulder and upper arm level, right arm, initial encounter Disposition: DC-01 TO HOME OR SELFCARE Is pt being admited?: No Does the pt Need Aspirin: No Condition: Stable Instructions: RICE Therapy (ED) Additional Instructions: Follow-up with a orthopedic doctor in 3-5 days or if symptoms worsen and continue return to emergency room as soon as possible. Do not operate any machinery while taking Tylenol with codeine as this may cause drowsiness. Prescriptions: Acetaminophen/Codeine [Tylenol /Codeine # 3 tab] 1 tab PO Q6H PRN #12 tab PRN Reason: Pain , Severe (7-10) Referrals: PRIMARY CARE, [Primary Care Provider] - 3-5 Days PANFILO GREENE MD [Staff Physician] - 3-5 Days [facility] [Provider Group] - 3-5 Days Forms: Work/School Release Form(ED)
--- NOTE | 2020-03-18 20:22 | XRay Report ---
RIGHT SHOULDER 3 VIEW(S) 7:41 PM INDICATION / CLINICAL INFORMATION: shoulder pain . Patient reports right shoulder dislocation this morning. COMPARISON: 12/12/18 FINDINGS: BONES / JOINT(S): No acute fracture or dislocation. Large, chronic appearing Hill-Sachs defect on the posterolateral humeral head, unchanged. No significant arthritis. SOFT TISSUES: No significant abnormality. ADDITIONAL FINDINGS: None. Signer Name: Kathy Quintero MD Signed: 03/18/2020 8:17 PM Workstation Name: [id number]
== END 2020-03-18 20:32 | disposition home or self-care (01) ==
LOC: ED 18:19
DX: S46.911A Strain of unspecified muscle, fascia and tendon at shoulder and upper arm level, right arm, initial encounter (principal); F17.200 Nicotine dependence, unspecified, uncomplicated; Z79.899 Other long term (current) drug therapy; X58.XXXA Exposure to other specified factors, initial encounter; Y93.89 Activity, other specified; Y92.89 Other specified places as the place of occurrence of the external cause; Y99.8 Other external cause status

== ENCOUNTER 2020-03-26 09:17 | Emergency (ER) | payer OTHER ==
[2020-03-26 09:47] LABS: Hematocrit 45.7 % (35.5-45.6); Hemoglobin 15.2 gm/dl (11.8-15.2); Mean Corpuscular HGB Conc 33 % (32-34); Mean Corpuscular Volume 85 fl (84-94); Platelet Count 158 K/mm3 (140-440); Red Blood Count 5.38 M/mm3 (3.65-5.03); Red Cell Distribution Width 14.7 % (13.2-15.2)
[2020-03-26 10:00] VITALS: BP 159/86
[2020-03-26 10:02] LABS: BUN/Creatinine Ratio 19; Blood Urea Nitrogen 19 mg/dL (9-20); Calcium 9.2 mg/dL (8.4-10.2); Hemolysis Index 7
--- NOTE | 2020-03-26 10:54 | Emergency Department Report ---
ED Seizure HPI - General Chief Complaint: Seizure Stated Complaint: SEIZURES/ RT ARM PAIN Time Seen by Provider: 03/26/20 09:42 Source: patient Mode of arrival: Ambulatory Limitations: No Limitations - History of Present Illness Initial Comments: 44-year-old male with a past medical history of seizures had 2 seizures while sleeping. Patient states he is a witnessed by his . Patient has a mild tongue abrasion to the right side of his tongue and denies urinary incontinence. He denies any acute pain. Patient takes Dilantin 500 mg nightly but missed a dose 2 nights ago. He did take a dose last night. He denies any fever or infectious symptoms. - Related Data Previous Rx's Medication Instructions Recorded Last Taken Type HYDROcodone/APAP 5-325 [[place] 1 each PO Q6HR PRN #14 tablet 09/16/19 Unknown Rx 5/325] Naproxen [Naprosyn] 500 mg PO BID PRN #14 tablet 10/11/19 Unknown Rx Acetaminophen/Codeine [Tylenol 1 tab PO Q6H PRN #12 tab 03/18/20 Unknown Rx /Codeine # 3 tab] Phenytoin [Dilantin] 500 mg PO QHS 30 Days 03/26/20 Unknown Rx Allergies Allergy/AdvReac Type Severity Reaction Status Date / Time aspirin Allergy Hives Verified 11/30/19 03:00 ED Review of Systems ROS: Stated complaint: SEIZURES/ RT ARM PAIN Other details as noted in HPI Comment: All other systems reviewed and negative ED Past Medical Hx - Past Medical History Previous Medical History?: Yes Hx Seizures: Yes Additional medical history: Dislocated shoulder with reduction - Surgical History Past Surgical History?: No - Social History Smoking Status: Current Every Day Smoker Substance Use Type: None - Medications Home Medications: Home Medications Medication Instructions Recorded Confirmed Last Taken Type HYDROcodone/APAP 5-325 [[place] 1 each PO Q6HR PRN #14 tablet 09/16/19 Unknown Rx 5/325] Naproxen [Naprosyn] 500 mg PO BID PRN #14 tablet 10/11/19 Unknown Rx Acetaminophen/Codeine [Tylenol 1 tab PO Q6H PRN #12 tab 03/18/20 Unknown Rx /Codeine # 3 tab] Phenytoin [Dilantin] 500 mg PO QHS 30 Days 03/26/20 Unknown Rx ED Physical Exam - General Limitations: No Limitations - Other Other exam information: General: No acute distress Head: Atraumatic Eyes: normal appearance ENT: Moist mucous membranes, mild tongue abrasion to the right side of tongue Neck: Normal appearance, no midline tenderness Chest: Clear to auscultation bilaterally CV: Regular rate and rhythm Abdomen: Soft, normal bowel sounds, nontender, nondistended, no rebound or guarding Back: Normal inspection Extremity: Normal inspection, right arm sling for ongoing right shoulder pain Neuro: Alert O x 3, no facial asymmetry, speech clear, no gross motor sensory deficit Psych: Appropriate behavior Skin: No rash ED Course Vital Signs 03/26/20 03/26/20 03/26/20 09:23 09:43 09:54 Temperature 98.6 F 97.8 F Pulse Rate 78 102 H 79 Respiratory 20 20 Rate Blood Pressure 139/81 159/86 O2 Sat by Pulse 99 98 Oximetry ED Medical Decision Making - Lab Data Result diagrams: 03/26/20 09:33 03/26/20 09:33 Lab Results 03/26/20 03/26/20 03/26/20 Range/Units 09:33 09:33 09:33 WBC 7.1 (4.5-11.0) K/mm3 RBC 5.38 H (3.65-5.03) M/mm3 Hgb 15.2 (11.8-15.2) gm/dl Hct 45.7 H (35.5-45.6) % MCV 85 (84-94) fl MCH 28 (28-32) pg MCHC 33 (32-34) % RDW 14.7 (13.2-15.2) % Plt Count 158 (140-440) K/mm3 Sodium 140 (137-145) mmol/L Potassium 4.2 (3.6-5.0) mmol/L Chloride 104.9 (98-107) mmol/L Carbon Dioxide 26 (22-30) mmol/L Anion Gap 13 mmol/L BUN 19 (9-20) mg/dL Creatinine 1.0 (0.8-1.5) mg/dL Estimated GFR > 60 ml/min BUN/Creatinine Ratio 19 % Glucose 108 H (75-100) mg/dL Calcium 9.2 (8.4-10.2) mg/dL Magnesium 2.30 (1.7-2.3) mg/dL Phenytoin (10.0-20.0) ug/mL 03/26/20 Range/Units 09:42 WBC (4.5-11.0) K/mm3 RBC (3.65-5.03) M/mm3 Hgb (11.8-15.2) gm/dl Hct (35.5-45.6) % MCV (84-94) fl MCH (28-32) pg MCHC (32-34) % RDW (13.2-15.2) % Plt Count (140-440) K/mm3 Sodium (137-145) mmol/L Potassium (3.6-5.0) mmol/L Chloride (98-107) mmol/L Carbon Dioxide (22-30) mmol/L Anion Gap mmol/L BUN (9-20) mg/dL Creatinine (0.8-1.5) mg/dL Estimated GFR ml/min BUN/Creatinine Ratio % Glucose (75-100) mg/dL Calcium (8.4-10.2) mg/dL Magnesium (1.7-2.3) mg/dL Phenytoin 10.9 (10.0-20.0) ug/mL - Medical Decision Making Patient declined IV access. Dilantin level 10.9 therefore lower limit of normal. Patient provided Dilantin 300 mg extended release to be told to continue his Dilantin 500 mg nightly and not to skip doses. Outpatient follow- up with neurologist advised Critical Care Time: No Critical care attestation.: If time is entered above; I have spent that time in minutes in the direct care of this critically ill patient, excluding procedure time. ED Disposition Clinical Impression: Breakthrough seizure, Noncompliance with medication regimen Disposition: TO HOME OR SELFCARE Is pt being admited?: No Does the pt Need Aspirin: No Condition: Stable Instructions: Recurrent Seizures Adult (ED) Additional Instructions: Continue your current medication as prescribed. Follow-up with your doctor or doctor/clinic provided. Return if symptoms worsen as indicated by your discharge instructions. Prescriptions: Phenytoin [Dilantin] 500 mg PO QHS 30 Days Referrals: ADEEL MUNSON MD [Staff Physician] - 3-5 Days (Neurology) MARCIA HEATH MD [Staff Physician] - 3-5 Days (Primary care doctor) [facility] [Provider Group] - 3-5 Days (Primary care clinic) Forms: Work/School Release Form(ED) Time of Disposition: 11:27
[2020-03-26] MEDS ORDERED: PHENYTOIN 100 MG CAPSULE.ER PO ONE (11:08)
== END 2020-03-26 11:57 | disposition home or self-care (01) ==
LOC: ED 09:17
DX: R56.9 Unspecified convulsions (principal); F17.200 Nicotine dependence, unspecified, uncomplicated; Z79.899 Other long term (current) drug therapy
CPT/HCPCS: 36415; 80048; 80185; 83735; 85027

== ENCOUNTER 2020-04-12 16:23 | Emergency (ER) | payer OTHER ==
[2020-04-12 17:01] VITALS: BP 126/72
--- NOTE | 2020-04-12 17:21 | Event Note ---
ED Screening Note Date of service: 04/12/20 Time: 17:20 ED Screening Note: 44-year-old -Spanish male presents to the emergency room reporting that he had a seizure today. Patient states that he has a history of seizures but has been taking his Dilantin. Patient states that he had some pickle juice and not sure that could have brought his Dilantin down. This initial assessment/diagnostic orders/clinical plan/treatment(s) is/are subject to change based on patients health status, clinical progression and re- assessment by fellow clinical providers in the ED. Further treatment and workup at subsequent clinical providers discretion. Patient/guardian urged not to elope from the ED as their condition may be serious if not clinically assessed and managed. Initial orders include:
[2020-04-12 18:12] LABS: Basophils # (Auto) 0.1 K/mm3 (0.0-0.1); Eosinophils # (Auto) 0.2 K/mm3 (0.0-0.4); Eosinophils % (Auto) 2.3 % (0.0-4.3); Hematocrit 44.9 % (35.5-45.6); Hemoglobin 15.5 gm/dl (11.8-15.2); Lymphocytes # (Auto) 1.3 K/mm3 (1.2-5.4); Lymphocytes % (Auto) 19.4 % (13.4-35.0); Mean Corpuscular HGB Conc 34 % (32-34); Mean Corpuscular Volume 85 fl (84-94); Monocytes # (Auto) 0.5 K/mm3 (0.0-0.8); Monocytes % (Auto) 8.1 % (0.0-7.3); Platelet Count 161 K/mm3 (140-440)
[2020-04-12 18:25] LABS: Alanine Aminotransferase 20 units/L (7-56); Albumin 4.2 g/dL (3.9-5); BUN/Creatinine Ratio 10; Blood Urea Nitrogen 12 mg/dL (9-20); Calcium 9.3 mg/dL (8.4-10.2); Hemolysis Index 8
[2020-04-12] MEDS ORDERED: INSULIN LISPRO 100 UNIT/ML SUB-Q ONE (19:48)
[2020-04-12] MEDS ORDERED: PHENYTOIN 100 MG CAPSULE.ER PO ONE (20:25)
--- NOTE | 2020-04-12 20:30 | Emergency Department Report ---
ED Seizure HPI - General Chief Complaint: Seizure Stated Complaint: SEIZURE Time Seen by Provider: 04/12/20 20:16 Source: patient Mode of arrival: Ambulatory Limitations: No Limitations - History of Present Illness Initial Comments: 44-year-old male with a past medical history of seizures presents to the hospital after having a seizure this a.m. Patient had a seizure in his sleep and was witnessed by his significant other. Patient did bite his tongue a little bit but denies christin laceration or continued bleeding. Patient has been asymptomatic throughout the day. He states he is compliant with his Dilantin but thinks his level might been affected by drinking a lot of pickle juice/vinegar. Pain equals 0 at this time. Patient requesting a refill on his meds - Related Data Previous Rx's Medication Instructions Recorded Last Taken Type HYDROcodone/APAP 5-325 [Dunn 1 each PO Q6HR PRN #14 tablet 09/16/19 Unknown Rx 5/325] Naproxen [Naprosyn] 500 mg PO BID PRN #14 tablet 10/11/19 Unknown Rx Acetaminophen/Codeine [Tylenol 1 tab PO Q6H PRN #12 tab 03/18/20 Unknown Rx /Codeine # 3 tab] Phenytoin [Dilantin] 500 mg PO QHS 30 Days 04/12/20 Unknown Rx Allergies Allergy/AdvReac Type Severity Reaction Status Date / Time aspirin Allergy Hives Verified 11/30/19 03:00 ED Review of Systems ROS: Stated complaint: SEIZURE Other details as noted in HPI Comment: All other systems reviewed and negative ED Past Medical Hx - Past Medical History Previous Medical History?: Yes Hx Seizures: Yes Additional medical history: Dislocated shoulder with reduction - Social History Smoking Status: Never Smoker Substance Use Type: None - Medications Home Medications: Home Medications Medication Instructions Recorded Confirmed Last Taken Type HYDROcodone/APAP 5-325 [Dunn 1 each PO Q6HR PRN #14 tablet 09/16/19 Unknown Rx 5/325] Naproxen [Naprosyn] 500 mg PO BID PRN #14 tablet 10/11/19 Unknown Rx Acetaminophen/Codeine [Tylenol 1 tab PO Q6H PRN #12 tab 03/18/20 Unknown Rx /Codeine # 3 tab] Phenytoin [Dilantin] 500 mg PO QHS 30 Days 04/12/20 Unknown Rx ED Physical Exam - General Limitations: No Limitations - Other Other exam information: General: No acute distress Head: Atraumatic Eyes: normal appearance ENT: Moist mucous membranes Neck: Normal appearance, no midline tenderness Chest: Clear to auscultation bilaterally CV: Regular rate and rhythm Abdomen: Soft, normal bowel sounds, nontender, nondistended, no rebound or guarding Back: Normal inspection Extremity: Normal inspection, full range of motion Neuro: Alert O x 3, no facial asymmetry, speech clear, no gross motor sensory deficit Psych: Appropriate behavior Skin: No rash ED Course Vital Signs 04/12/20 16:54 Temperature 98.2 F Pulse Rate 81 Respiratory 18 Rate Blood Pressure 126/72 O2 Sat by Pulse 100 Oximetry ED Medical Decision Making - Lab Data Result diagrams: 04/12/20 17:59 04/12/20 17:59 Lab Results 04/12/20 04/12/20 04/12/20 Range/Units 17:59 17:59 17:59 WBC 6.5 (4.5-11.0) K/mm3 RBC 5.30 H (3.65-5.03) M/mm3 Hgb 15.5 H (11.8-15.2) gm/dl Hct 44.9 (35.5-45.6) % MCV 85 (84-94) fl MCH 29 (28-32) pg MCHC 34 (32-34) % RDW 14.0 (13.2-15.2) % Plt Count 161 (140-440) K/mm3 Lymph % (Auto) 19.4 (13.4-35.0) % Callahan % (Auto) 8.1 H (0.0-7.3) % Eos % (Auto) 2.3 (0.0-4.3) % Baso % (Auto) 1.0 (0.0-1.8) % Lymph # 1.3 (1.2-5.4) K/mm3 Callahan # 0.5 (0.0-0.8) K/mm3 Eos # 0.2 (0.0-0.4) K/mm3 Baso # 0.1 (0.0-0.1) K/mm3 Seg Neutrophils % 69.2 (40.0-70.0) % Seg Neutrophils # 4.5 (1.8-7.7) K/mm3 Sodium 137 (137-145) mmol/L Potassium 4.5 (3.6-5.0) mmol/L Chloride 98.8 (98-107) mmol/L Carbon Dioxide 27 (22-30) mmol/L Anion Gap 16 mmol/L BUN 12 (9-20) mg/dL Creatinine 1.2 (0.8-1.5) mg/dL Estimated GFR > 60 ml/min BUN/Creatinine Ratio 10 % Glucose 100 (75-100) mg/dL Calcium 9.3 (8.4-10.2) mg/dL Magnesium (1.7-2.3) mg/dL Total Bilirubin 0.20 (0.1-1.2) mg/dL AST 16 (5-40) units/L ALT 20 (7-56) units/L Alkaline Phosphatase 109 (35-129) units/L Total Protein 7.9 (6.3-8.2) g/dL Albumin 4.2 (3.9-5) g/dL Albumin/Globulin Ratio 1.1 % Phenytoin 11.2 (10.0-20.0) ug/mL Plasma/Serum Alcohol (0-0.07) % 04/12/20 04/12/20 Range/Units 17:59 17:59 WBC (4.5-11.0) K/mm3 RBC (3.65-5.03) M/mm3 Hgb (11.8-15.2) gm/dl Hct (35.5-45.6) % MCV (84-94) fl MCH (28-32) pg MCHC (32-34) % RDW (13.2-15.2) % Plt Count (140-440) K/mm3 Lymph % (Auto) (13.4-35.0) % Callahan % (Auto) (0.0-7.3) % Eos % (Auto) (0.0-4.3) % Baso % (Auto) (0.0-1.8) % Lymph # (1.2-5.4) K/mm3 Callahan # (0.0-0.8) K/mm3 Eos # (0.0-0.4) K/mm3 Baso # (0.0-0.1) K/mm3 Seg Neutrophils % (40.0-70.0) % Seg Neutrophils # (1.8-7.7) K/mm3 Sodium (137-145) mmol/L Potassium (3.6-5.0) mmol/L Chloride (98-107) mmol/L Carbon Dioxide (22-30) mmol/L Anion Gap mmol/L BUN (9-20) mg/dL Creatinine (0.8-1.5) mg/dL Estimated GFR ml/min BUN/Creatinine Ratio % Glucose (75-100) mg/dL Calcium (8.4-10.2) mg/dL Magnesium 2.30 (1.7-2.3) mg/dL Total Bilirubin (0.1-1.2) mg/dL AST (5-40) units/L ALT (7-56) units/L Alkaline Phosphatase (35-129) units/L Total Protein (6.3-8.2) g/dL Albumin (3.9-5) g/dL Albumin/Globulin Ratio % Phenytoin (10.0-20.0) ug/mL Plasma/Serum Alcohol < 0.01 (0-0.07) % - Medical Decision Making Patient had a breakthrough seizure this morning and is otherwise symptomatic today. His Dilantin level is therapeutic however, on the the lower end of normal range. Other labs unremarkable. additional 300 mg p.o. provided in the ED and patient instructed to take his 500 mg dose this evening. Refill medication provided. Critical Care Time: No Critical care attestation.: If time is entered above; I have spent that time in minutes in the direct care of this critically ill patient, excluding procedure time. ED Disposition Clinical Impression: Breakthrough seizure Disposition: DC-01 TO HOME OR SELFCARE Is pt being admited?: No Does the pt Need Aspirin: No Condition: Stable Instructions: Epilepsy (ED) Additional Instructions: Take the medication as prescribed. Follow-up with your doctor or doctor/clinic provided. Return if symptoms worsen as indicated by your discharge instructions. Prescriptions: Phenytoin [Dilantin] 500 mg PO QHS 30 Days Referrals: CARLOS MCMULLEN MD [Primary Care Provider] - 3-5 Days ADELE MUNSON MD [Staff Physician] - 3-5 Days (neurology) [facility] [Provider Group] - 3-5 Days (primary care clinic ) Forms: Work/School Release Form(ED)
== END 2020-04-12 20:59 | disposition home or self-care (01) ==
LOC: ED 16:23
DX: R56.9 Unspecified convulsions (principal); Z79.899 Other long term (current) drug therapy; Z88.8 Allergy status to other drugs, medicaments and biological substances
CPT/HCPCS: 36415; 80053; 80185; 80320; 83735; 85025; G0480; J1815